=== PATIENT | female | born 1965 | race Caucasian/White ===

== ENCOUNTER 2021-02-14 16:23 | Emergency (ER) | payer MEDICARE, OTHER ==
[~2021-02-14] VITALS: Ht 170.2 cm; Wt 146.0 kg
[~2021-02-14 16:23] MED LIST: ALBU8.5H6 IH; ALLO100T PO; ALPR0.25 PO; AMOX500C PO; BACL10TA PO; CEFP200T PO; CETI10TA16 PO; CLON0.5T PO; CYCL5TAB PO; FURO-69 PO; HYDR-2761 PO; HYDR25CA PO; METH4TAB2 PO; METO5TAB55 PO; OMEP10CA PO; POTA10TA PO; SERT25TA PO; SIMV10TA15 PO
--- NOTE | 2021-02-14 18:12 | ED.ADGEN ---
Past Medical History Past Medical History: Anxiety, Asthma, COPD, GERD, Hypertension, Other Additional Past Medical Histor: Gout, Hyper cholesterol. Past Surgical History: Cholecystectomy, Tubal ligation, Other Additional Past Surgical Histo: Bladder mesh Smoking Status: Current Every Day Smoker Alcohol Use: None Drug Use: None General Adult EDM: Chief Complaint: MECHANICAL FALL HPI: HPI: Patient is a 55 year old female presenting with right lower extremity pain after a fall last night. Patient states she was getting up to go the bathroom and tripped. Patient states she had inversion of her ankle and fell to her knees. That she has not had pain in her legs currently but is complaining of pain in her ankle or foot. States her foot is swollen and tingling. Denies any prior injuries to the foot. Patient states she otherwise been well. Review of Systems: Review of Systems: All other systems within normal limits except for as noted in the HPI Allergies: Allergies: Allergies Coded Allergies Type Severity Reaction Last Updated Verified levofloxacin Allergy Unknown Rash 11/27/13 Yes Physical Exam: PE: Constitutional: Well developed, well nourished, no acute distress, non-toxic appearance. [] HENT: Normocephalic, atraumatic, bilateral external ears normal, nose normal. [] Eyes: PERRLA, conjunctiva normal, no discharge. [] Neck: No rigidity, supple, no stridor. [] Cardiovascular: Regular rate and rhythm, brisk cap refill [] Lungs & Thorax: Non labored symmetric respirations, no tachypnea or respiratory distress [] Abdomen: Soft, nondistended. Skin: Warm, dry, no erythema, no rash. [] Back: Unremarkable Extremities: No deformities, range of motion grossly intact, no lower extremity edema. Right lower extremity. Ankle pain elicited by tib-fib squeeze, mild edema and erythema of dorsum of right foot. Sensation intact. [] Neurologic: Alert and oriented X 3, no focal deficits noted. [] Psychologic: Affect normal, judgement normal, mood normal. [] Current Patient Data: Vital Signs: Vital Signs Date Time Temp Pulse Resp B/P (MAP) Pulse Ox O2 Delivery O2 Flow Rate FiO2 02/14/21 17:00 98.2 71 18 148/79 (108) 98 Room Air 98.2 EKG: EKG: [] Heart Score: C/O Chest Pain: No Risk Factors: Risk Factors: DM, Current or recent (<one month) smoker, HTN, HLP, family history of CAD, obesity. Risk Scores: Score 0 - 3: 2.5% MACE over next 6 weeks - Discharge Home Score 4 - 6: 20.3% MACE over next 6 weeks - Admit for Clinical Observation Score 7 - 10: 72.7% MACE over next 6 weeks - Early Invasive Strategies Radiology/Procedures: Radiology/Procedures: [facility] [address] [place] [address] IMAGING REPORT Signed PATIENT: ANDERS MORALES ACCOUNT: [id number] : 1965 LOCATION: ER AGE: 55 SEX: F EXAM STATUS: REG ER ORD. PHYSICIAN: MANDA LINDSAY MD REASON: fall, pain PROCEDURE: TIBIA FIBULA RIGHT Exam: Right foot 3 views. Right tibia and fibula 2 views INDICATION: Fall, pain TECHNIQUE: Frontal, lateral and oblique views of the right foot. Frontal and la teral views of the right tibia and fibula Comparisons: None FINDINGS: Foot: Bone mineralization is normal. No acute or healed fractures. There is mild soft tissue swelling at the forefoot. Joint spaces are well-maintained. Tib-fib: Bone mineralization is normal. No acute or healed fractures. Soft tissues are unremarkable. Joint spaces are well-maintained IMPRESSION: 1. Mild soft tissue swelling at the forefoot without underlying osseous abnormality identified. 2. No acute osseous abnormality identified at the right tibia and fibula Electronically signed by: Aggie Reyez MD (02/14/2021 7:16 PM) [facility] DICTATED and SIGNED BY: AGGIE REYEZ MD DATE: 02/14/21 [id number] [] Course & Med Decision Making: Course & Med Decision Making Pertinent Labs and Imaging studies reviewed. (See chart for details) [] Dragon Disclaimer: Harry Disclaimer: This electronic medical record was generated, in whole or in part, using a voice recognition dictation system. Departure Departure Impression: Primary Impression: Right ankle sprain Disposition: HOME / SELF CARE / HOMELESS Condition: STABLE Referrals: ELLEN HURLEY MD (PCP) Patient Instructions: RICE - Routine Care for Injuries MANDA LINDSAY MD Feb 14, 2021 18:12
--- NOTE | 2021-02-14 19:18 | RAD ---
Exam: Right foot 3 views. Right tibia and fibula 2 views INDICATION: Fall, pain TECHNIQUE: Frontal, lateral and oblique views of the right foot. Frontal and lateral views of the rig ht tibia and fibula Comparisons: None FINDINGS: Foot: Bone mineralization is normal. No acute or healed fractures. There is mild soft tissue swelling at th e forefoot. Joint spaces are well-maintained. Tib-fib: Bone mineralization is normal. No acute or healed fractures. Soft tissues are unremarkable. Joint spa heather are well-maintained IMPRESSION: 1. Mild soft tissue swelling at the forefoot without underlying osseous abnormality identified. 2. No acute osseous abnormality identified at the right tibia and fibula Electronically signed by: Aggie Choudhury MD (02/14/2021 7:16 PM) [facility]
[2021-02-14 19:50] VITALS: BP 138/86
== END 2021-02-14 19:50 | disposition home or self-care (01) ==
LOC: ER 16:23
DX: S93.401A Sprain of unspecified ligament of right ankle, initial encounter (principal); J44.9 Chronic obstructive pulmonary disease, unspecified; K21.9 Gastro-esophageal reflux disease without esophagitis; I10 Essential (primary) hypertension; F17.200 Nicotine dependence, unspecified, uncomplicated; M10.9 Gout, unspecified; Z88.1 Allergy status to other antibiotic agents; W01.0XXA Fall on same level from slipping, tripping and stumbling without subsequent striking against object, initial encounter; Y93.89 Activity, other specified; Y92.89 Other specified places as the place of occurrence of the external cause; Y99.8 Other external cause status
CPT/HCPCS: 73590; 73630; 99284